=== PATIENT | female | born 1975 | race Two or more races ===

== ENCOUNTER 2018-04-02 17:33 | Emergency (ER) | payer OTHER ==
[~2018-04-02] VITALS: Ht 175.3 cm; Wt 134.7 kg
--- NOTE | 2018-04-02 17:33 | NUR ---
BIBSELF C/O DIZZINESS, NAUSEA, BLURRING OF VISION, ALSO HAS CONCERNS REGARDING MALARIA. PT IS AAOX4, RESPIRATIONS EVEN AND UNLABORED, NO SOB, NAD NOTED, VSS, PENDING ER PROVIDER MEAGHAN
--- NOTE | 2018-04-02 18:01 | NUR ---
PT GIVEN SPECIMEN CUP FOR A STOOL SAMPLE. PER PT, UNABLE TO GIVE SAMPLE AT THIS TIME
[2018-04-02 18:26] LABS: BASOPHILS % (AUTO) 0.3 % (0.0-2.0); EOSINOPHILS % (AUTO) 1.4 % (0.0-6.0); HEMATOCRIT 38 % (33-45); HEMOGLOBIN 12.6 g/dL (11.5-14.8); LYMPHOCYTES # (AUTO) 2.1 /CMM (0.8-4.8); LYMPHOCYTES % (AUTO) 29.2 % (20.0-44.0); MEAN CORPUSCULAR HGB CONC 33 g/dl (31.0-36.0); MEAN CORPUSCULAR VOLUME 91 fL (82-100); MONOCYTES # (AUTO) 0.4 /CMM (0.1-1.30); MONOCYTES % (AUTO) 4.9 % (2.0-12.0); NEUTROPHILS # (AUTO) 4.6 /CMM (1.8-8.9); NEUTROPHILS % (AUTO) 64.2 % (43.0-81.0); PLATELET COUNT (AUTO) 299 /CMM (150-450); RED BLOOD CELL COUNT(AUTO) 4.15 MIL/uL (4.0-5.2); WHITE BLOOD COUNT (AUTO) 7.2 K/uL (4.3-11.0)
[2018-04-02 18:40] LABS: CALCIUM, SERUM 8.6 mg/dL (8.5-10.1)
[2018-04-02 18:46] LABS: ALBUMIN 3.3 g/dL (3.4-5.0); BILIRUBIN,DIRECT 0.1 mg/dL (0.0-0.2); BILIRUBIN,TOTAL 0.4 mg/dL (0.2-1.0); TOTAL PROTEIN, SERUM 7.4 g/dL (6.4-8.2)
--- NOTE | 2018-04-02 20:32 | NUR ---
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 PER HERNANDEZII, PT WILL CALL BACK TO ER FOR RESULTS REGARDING MALARIA. CHARGE NURSE MADE AWARE. PT SIGNED AMA, EXPLAINED RISKS AND BENEFITS TO PT. VERBALIZES UNDERSTANDING.
[2018-04-02 20:35] VITALS: BP 155/80
== END 2018-04-02 20:36 | disposition left against medical advice (07) ==
LOC: ER 17:34
DX: R19.7 Diarrhea, unspecified (principal); Z11.6 Encounter for screening for other protozoal diseases and helminthiases; R53.83 Other fatigue; R42 Dizziness and giddiness; F12.90 Cannabis use, unspecified, uncomplicated
CPT/HCPCS: 36415; 80048-TC; 80076-TC; 83690-TC; 85025-TC; 85730-TC; 87207-TC; A4606; Z7610